=== PATIENT | male | born 1950 | race Caucasian/White ===

== ENCOUNTER 2024-10-17 08:34 | Outpatient (CLI) | payer MEDICARE | END 2024-10-17 08:35 | disposition home or self-care (01) | LOC: CSHSLEEP 08:34 | PROVIDERS: ATTEND Family Medicine | DX: G47.33 Obstructive sleep apnea (adult) (pediatric) (principal); R53.83 Other fatigue; E66.9 Obesity, unspecified; Z68.28 Body mass index [BMI] 28.0-28.9, adult | CPT/HCPCS: 95800 ==